=== PATIENT | male | born 1965 | race Caucasian/White ===

== ENCOUNTER 2022-04-04 11:59 | Outpatient (CLI) | payer MEDICARE, SELFPAY ==
[2022-04-04 22:17] LABS: Vitamin B12* 372 pg/mL (243-894)
== END 2022-04-04 12:00 | disposition home or self-care (01) ==
PROVIDERS: PCP Physician Assistant Medical; Visit Provider Physician Assistant Medical
DX: Z00.00 Encounter for general adult medical examination without abnormal findings (principal); F50.9 Eating disorder, unspecified; K21.9 Gastro-esophageal reflux disease without esophagitis; R63.0 Anorexia; Z12.5 Encounter for screening for malignant neoplasm of prostate
CPT/HCPCS: 82607; 84153; 84443

== ENCOUNTER 2023-02-17 10:24 | Outpatient (CLI) | payer MEDICARE, SELFPAY | END 2023-02-17 10:25 | disposition home or self-care (01) | PROVIDERS: PCP Physician Assistant Medical; Visit Provider Physician Assistant Medical | DX: Z00.00 Encounter for general adult medical examination without abnormal findings (principal); R03.0 Elevated blood-pressure reading, without diagnosis of hypertension; Z13.6 Encounter for screening for cardiovascular disorders; Z12.5 Encounter for screening for malignant neoplasm of prostate; Z13.0 Encounter for screening for diseases of the blood and blood-forming organs and certain disorders involving the immune mechanism; Z11.59 Encounter for screening for other viral diseases; Z13.29 Encounter for screening for other suspected endocrine disorder | CPT/HCPCS: 80053; 80061; 82306; 82607; 83516; 84153; 84443; 86703; 86803 ==

== ENCOUNTER 2024-03-08 16:34 | Outpatient (CLI) | payer MEDICARE, SELFPAY | END 2024-03-08 16:35 | disposition home or self-care (01) | PROVIDERS: PCP Physician Assistant Medical; Visit Provider Physician Assistant Medical | DX: E53.8 Deficiency of other specified B group vitamins (principal); R03.0 Elevated blood-pressure reading, without diagnosis of hypertension; Z12.5 Encounter for screening for malignant neoplasm of prostate; Z11.59 Encounter for screening for other viral diseases; Z13.29 Encounter for screening for other suspected endocrine disorder | CPT/HCPCS: 80053; 82306; 82607; 84443; 86703; 86803; G0103 ==

== ENCOUNTER 2025-05-25 08:40 | Outpatient (CLI) | payer MEDICARE, MEDICAID, SELFPAY | END 2025-05-25 08:41 | disposition home or self-care (01) | LOC: NFLDREF 05-26 19:05 | PROVIDERS: PCP Physician Assistant Medical; Referring Provider Physician Assistant Medical; Visit Provider Physician Assistant Medical | DX: Z00.00 Encounter for general adult medical examination without abnormal findings (principal) | CPT/HCPCS: 80053; 80061; 84443; G0103 ==